=== PATIENT | male | born 1970 | race Caucasian/White ===

== ENCOUNTER 2018-03-02 16:40 | Inpatient (IN) | payer MEDICARE, OTHER ==
[2018-03-02 20:09] LABS: ADD MAN DIFF? NO
[2018-03-02 20:11] LABS: BASOPHIL # 0.1 10^3/ul (0.0-0.1); BASOPHILS % 0.6 % (0.0-2.0); EOSINOPHILS # 0.2 10^3/ul (0.0-0.5); EOSINOPHILS % 1.3 % (0.0-7.0); HEMATOCRIT 44.8 % (42.0-52.0); HEMOGLOBIN 14.9 g/dl (14.0-18.0); LYMPHOCYTES # 2.8 10^3/ul (0.8-2.9); LYMPHOCYTES % 22.1 % (15.0-51.0); MEAN CORPUSCULAR HEMOGLOBIN 27.3 pg (29.0-33.0); MEAN CORPUSCULAR HGB CONC 33.3 g/dl (32.0-37.0); MEAN CORPUSCULAR VOLUME 82.2 fl (82.0-101.0); MEAN PLATELET VOLUME 10.6 fl (7.4-10.4); MONOCYTE # 0.8 10^3/ul (0.3-0.9); MONOCYTES % 6.3 % (0.0-11.0); NEUTROPHIL # 8.7 10^3/ul (1.6-7.5); NEUTROPHILS % 68.7 % (39.0-77.0); PLATELET COUNT 360 10^3/UL (140-415); RED BLOOD COUNT 5.45 10^6/ul (4.70-6.10); RED CELL DISTRIBUTION WIDTH 14.3 % (11.5-14.5)
[2018-03-02 20:11] LABS: WHITE BLOOD COUNT 12.6 10^3/ul (4.8-10.8)
[2018-03-02 20:15] LABS: INR 0.86; PROTIME 11.8 Sec (11.9-14.9); PT RATIO 0.9
[2018-03-02 20:17] LABS: ANION GAP 13 (8-16); BLOOD UREA NITROGEN 14 mg/dl (7-20); CALCIUM 9.4 mg/dl (8.4-10.2); CARBON DIOXIDE 28 mmol/L (21-31); CHLORIDE 102 mmol/L (97-110); GLUCOSE 111 mg/dl (70-220); POTASSIUM 3.3 mmol/L (3.5-5.1); SODIUM 140 mmol/L (135-144)
[2018-03-02 20:29] LABS: B-TYPE NATRIURETIC PEPTIDE 12 PG/ML (0-125); TROPONIN-I < 0.012 ng/ml (0.000-0.120)
[2018-03-02] MEDS ORDERED: NITROGLYCERIN (SL) 0.4 MG TAB SL (21:00)
[2018-03-02] MEDS ORDERED: ONDANSETRON 4 MG INJ IV ×2 (21:00)
[2018-03-02] MEDS ORDERED: DOCUSATE SODIUM 100 MG CAP PO (21:00)
[2018-03-02] MEDS ORDERED: ACETAMINOPHEN 325 MG TAB PO (21:00)
[2018-03-02] MEDS ORDERED: MAGNESIUM HYDROXIDE 30ML CUP PO (21:00)
[2018-03-02] MEDS ORDERED: LORAZEPAM 1 MG TAB PO (21:00)
[2018-03-02] MEDS ORDERED: NACL 0.9% 3 ML SYG IV (21:00)
[2018-03-02] MEDS ORDERED: HYDROCODONE/APAP (5/325) TAB PO (21:00)
[2018-03-02] MEDS ORDERED: OXYCODONE/ACETAMINOPHEN (10/325) TAB PO (21:00)
[2018-03-02] MEDS: HYDROmorphONE 0.5 MG/0.5 ML SYG IV ×2 (21:07→21:53)
[2018-03-02] MEDS: METOPROLOL 25 MG TAB PO (22:45)
[2018-03-02] MEDS: LORAZEPAM 2 MG INJ IV (22:48)
[2018-03-03] MEDS: DIPHENHYDRAMINE 50 MG INJ IV ×3 (02:00→19:03)
[2018-03-03] MEDS: PREGABALIN 100 MG CAP PO ×4 (02:00→20:11)
[2018-03-03 02:21] LABS: CREATINE KINASE 41 IU/L (23-200)
[2018-03-03 02:33] LABS: CK INDEX 0.5; CK-MB < 0.22 ng/ml (0.0-2.4); TROPONIN-I < 0.012 ng/ml (0.000-0.120)
[2018-03-03] MEDS: HYDROmorphONE 2 MG/ML SYG IV ×5 (04:42→20:12)
[2018-03-03] MEDS: TRIAMCINOLONE ACET 0.1% 15 GM OINT TOP ×4 (04:42→20:16)
[2018-03-03] MEDS: PANTOPRAZOLE (EC) 40 MG TAB PO (05:44)
[2018-03-03 06:55] LABS: ADD MAN DIFF? NO
[2018-03-03 07:01] LABS: WHITE BLOOD COUNT 12.3 10^3/ul (4.8-10.8)
[2018-03-03 07:01] LABS: BASOPHIL # 0.1 10^3/ul (0.0-0.1); BASOPHILS % 0.7 % (0.0-2.0); EOSINOPHILS # 0.2 10^3/ul (0.0-0.5); EOSINOPHILS % 1.5 % (0.0-7.0); HEMOGLOBIN 14.2 g/dl (14.0-18.0); LYMPHOCYTES # 2.5 10^3/ul (0.8-2.9); LYMPHOCYTES % 20.2 % (15.0-51.0); MEAN CORPUSCULAR HEMOGLOBIN 27.1 pg (29.0-33.0); MEAN CORPUSCULAR VOLUME 82.1 fl (82.0-101.0); MEAN PLATELET VOLUME 10.4 fl (7.4-10.4); MONOCYTE # 0.8 10^3/ul (0.3-0.9); MONOCYTES % 6.1 % (0.0-11.0); NEUTROPHIL # 8.7 10^3/ul (1.6-7.5); NEUTROPHILS % 70.5 % (39.0-77.0); PLATELET COUNT 318 10^3/UL (140-415); RED BLOOD COUNT 5.24 10^6/ul (4.70-6.10); RED CELL DISTRIBUTION WIDTH 14.6 % (11.5-14.5)
[2018-03-03 07:15] LABS: HEMOGLOBIN A1C 5.6 % (0-5.9)
[2018-03-03 07:27] LABS: CREATINE KINASE 39 IU/L (23-200)
[2018-03-03 07:34] LABS: CK INDEX 0.6; CK-MB < 0.22 ng/ml (0.0-2.4); TROPONIN-I < 0.012 ng/ml (0.000-0.120)
[2018-03-03 07:44] LABS: ALANINE AMINOTRANSFERASE 75 IU/L (13-69); ALBUMIN/GLOBULIN RATIO 1.21; ALKALINE PHOSPHATASE 95 IU/L (42-121); ANION GAP 16 (8-16); ASPARTATE AMINO TRANSFERASE 48 IU/L (15-46); BILIRUBIN,INDIRECT 0.6 mg/dl (0-1.1); BILIRUBIN,TOTAL 0.6 mg/dl (0.2-1.3); BLOOD UREA NITROGEN 15 mg/dl (7-20); C-REACTIVE PROTEIN 1.6 mg/dl (0.0-0.9); CALCIUM 9.6 mg/dl (8.4-10.2); CARBON DIOXIDE 30 mmol/L (21-31); CHLORIDE 103 mmol/L (97-110); CREATININE 0.92 mg/dl (0.61-1.24); GLUCOSE 102 mg/dl (70-220); LIPASE 60 U/L (23-300); POTASSIUM 4.7 mmol/L (3.5-5.1); SODIUM 144 mmol/L (135-144); TOTAL PROTEIN 7.3 g/dl (6.1-8.1)
[2018-03-03 07:55] LABS: HDL CHOLESTEROL 42 mg/dl (27-67); LDL CHOLESTEROL,CALCULATED 67 mg/dl; TRIGLYCERIDES 316 mg/dl (0-149)
[2018-03-03 07:55] LABS: CHOLESTEROL 172 mg/dl (100-200)
[2018-03-03] MEDS: METOPROLOL 25 MG TAB PO ×2 (08:34→20:11)
[2018-03-03] MEDS: ENOXAPARIN 40 MG/0.4 ML SYG SC (08:41)
[2018-03-03] MEDS ORDERED: PANTOPRAZOLE (EC) 40 MG TAB PO (09:00)
[2018-03-03] MEDS: LORATADINE 10 MG TAB PO (13:50)
[2018-03-03] MEDS ORDERED: CALAMINE 170 ML LOT TOP (14:00)
[2018-03-03] MEDS ORDERED: AL HYDROX/MG HYDROX/SIMETH 30 ML CUP PO (17:00)
[2018-03-03 17:23] LABS: ADD UMIC YES; UR ASCORBIC ACID NEGATIVE (NEGATIVE); UR BILIRUBIN (Dip) NEGATIVE (NEGATIVE); UR BLOOD (Dip) 1+ mg/dL (NEGATIVE); UR CLARITY CLEAR (CLEAR); UR COLOR YELLOW (YELLOW); UR GLUCOSE (Dip) NEGATIVE (NEGATIVE); UR KETONES (Dip) NEGATIVE (NEGATIVE); UR LEUKOCYTE ESTERASE (Dip) NEGATIVE Leu/ul (NEGATIVE); UR MUCUS MODERATE /HPF (NONE SEEN); UR NITRITE (Dip) NEGATIVE (NEGATIVE); UR RBC 1 /HPF (0-5); UR SPECIFIC GRAVITY (Dip) 1.027 (1.003-1.030); UR TOTAL PROTEIN (Dip) 2+ mg/dl (NEGATIVE); UR UROBILINOGEN (Dip) NEGATIVE (NEGATIVE); UR WBC 4 /HPF (0-5)
[2018-03-04] MEDS: PANTOPRAZOLE (EC) 40 MG TAB PO (05:32)
[2018-03-04] MEDS: HYDROmorphONE 2 MG/ML SYG IV ×6 (06:35→23:40)
[2018-03-04] MEDS: hydrOXYzine HCL 25 MG TAB PO ×2 (06:38→16:52)
[2018-03-04] MEDS: PREGABALIN 100 MG CAP PO ×3 (08:43→20:19)
[2018-03-04] MEDS: LORATADINE 10 MG TAB PO (08:43)
[2018-03-04] MEDS: TRIAMCINOLONE ACET 0.1% 15 GM OINT TOP ×3 (08:44→20:20)
[2018-03-04] MEDS: METOPROLOL 25 MG TAB PO ×2 (08:44→20:18)
[2018-03-04] MEDS: ASPIRIN 81 MG TAB PO (08:44)
[2018-03-04] MEDS: ENOXAPARIN 40 MG/0.4 ML SYG SC (08:46)
[2018-03-04] MEDS: AMLODIPINE 5 MG TAB PO (17:24)
[2018-03-04] MEDS: clonAZEPAM 0.5 MG TAB PO (20:18)
[2018-03-04] MEDS: ZOLPIDEM 5 MG TAB PO (23:39)
[2018-03-05] MEDS: PANTOPRAZOLE (EC) 40 MG TAB PO (05:56)
[2018-03-05] MEDS: PREGABALIN 100 MG CAP PO ×3 (08:36→20:20)
[2018-03-05] MEDS: ASPIRIN 81 MG TAB PO (08:36)
[2018-03-05] MEDS: clonAZEPAM 0.5 MG TAB PO ×2 (08:37→20:20)
[2018-03-05] MEDS: AMLODIPINE 5 MG TAB PO (08:37)
[2018-03-05] MEDS: LORATADINE 10 MG TAB PO (08:37)
[2018-03-05] MEDS: METOPROLOL 25 MG TAB PO ×2 (08:38→20:20)
[2018-03-05] MEDS: TRIAMCINOLONE ACET 0.1% 15 GM OINT TOP ×3 (08:38→20:21)
[2018-03-05] MEDS: HYDROmorphONE 2 MG/ML SYG IV ×5 (08:39→22:03)
[2018-03-05] MEDS: ENOXAPARIN 40 MG/0.4 ML SYG SC (08:40)
[2018-03-05] MEDS: DIPHENHYDRAMINE 50 MG INJ IV ×2 (13:20→22:59)
[2018-03-05] MEDS: hydrOXYzine HCL 25 MG TAB PO (20:20)
[2018-03-05] MEDS: ZOLPIDEM 5 MG TAB PO (21:20)
[2018-03-06] MEDS: HYDROmorphONE 2 MG/ML SYG IV ×5 (01:07→15:34)
[2018-03-06] MEDS: PANTOPRAZOLE (EC) 40 MG TAB PO (05:29)
[2018-03-06] MEDS: ACETAMINOPHEN 325 MG TAB PO (05:37)
[2018-03-06] MEDS: FENOFIBRATE 145 MG TAB PO (08:37)
[2018-03-06] MEDS: PREGABALIN 100 MG CAP PO ×2 (08:37→12:13)
[2018-03-06] MEDS: ENOXAPARIN 40 MG/0.4 ML SYG SC (08:37)
[2018-03-06] MEDS: METOPROLOL 25 MG TAB PO (08:38)
[2018-03-06] MEDS: ASPIRIN 81 MG TAB PO (08:38)
[2018-03-06] MEDS: clonAZEPAM 0.5 MG TAB PO (08:38)
[2018-03-06] MEDS: LORATADINE 10 MG TAB PO (08:38)
[2018-03-06] MEDS: AMLODIPINE 5 MG TAB PO (08:39)
[2018-03-06] MEDS: TRIAMCINOLONE ACET 0.1% 15 GM OINT TOP ×2 (08:46→13:17)
[2018-03-06] MEDS ORDERED: METHYLPREDNISOLONE 125 MG INJ IM (11:00)
[2018-03-06] MEDS: METHYLPREDNISOLONE 125 MG INJ IV (12:53)
== END 2018-03-06 17:05 | disposition home or self-care (01) | DRG 313 ==
LOC: E/R 16:40 → 2NE 03-03 16:43 → TEL 20:53 → 2NE 03-03 16:53
DX: R07.9 Chest pain, unspecified (principal); M54.16 Radiculopathy, lumbar region; R00.0 Tachycardia, unspecified; K76.0 Fatty (change of) liver, not elsewhere classified; Z68.34 Body mass index [BMI] 34.0-34.9, adult; M25.552 Pain in left hip; D72.829 Elevated white blood cell count, unspecified; G62.9 Polyneuropathy, unspecified; Z86.012 Personal history of benign carcinoid tumor; E78.5 Hyperlipidemia, unspecified; R74.0 Nonspecific elevation of levels of transaminase and lactic acid dehydrogenase [LDH]; E66.01 Morbid (severe) obesity due to excess calories; R94.31 Abnormal electrocardiogram [ECG] [EKG]; T78.40XA Allergy, unspecified, initial encounter; X58.XXXA Exposure to other specified factors, initial encounter
CPT/HCPCS: 36415; 71045; 72100; 73510; 80048; 80053; 80061; 81001; 82550; 82553; 82607; 83036; 83690; 83880; 84443; 84484; 85025; 85610; 85651; 86140; 87086; 93005; 97161; 99285-25